=== PATIENT | male | born 1965 | race Two or more races ===

== ENCOUNTER → 2019-08-21 07:40 | Outpatient (CLI) | payer OTHER | END | disposition home or self-care (01) | LOC: LAB 07:40 | PROVIDERS: ATTEND Internal Medicine Cardiovascular Disease | DX: I25.10 Atherosclerotic heart disease of native coronary artery without angina pectoris (principal); I10 Essential (primary) hypertension; E03.8 Other specified hypothyroidism; E78.2 Mixed hyperlipidemia; E11.9 Type 2 diabetes mellitus without complications ==

== ENCOUNTER 2019-08-21 08:34 | Outpatient (CLI) | payer OTHER | END 2019-08-21 09:33 | disposition home or self-care (01) | LOC: NUCLEAR 08:34 | PROVIDERS: ATTEND Internal Medicine Cardiovascular Disease | DX: I80.02 Phlebitis and thrombophlebitis of superficial vessels of left lower extremity (principal) ==

== ENCOUNTER 2021-02-14 07:40 | Outpatient (CLI) | payer OTHER | END 2021-02-14 08:00 | disposition home or self-care (01) | LOC: PPH VACUNA 07:40 | PROVIDERS: ATTEND Emergency Medicine Pediatric Emergency Medicine | DX: Z23 Encounter for immunization (principal) ==

== ENCOUNTER 2022-06-26 08:32 | Outpatient (CLI) | payer OTHER | END 2022-06-26 08:35 | disposition home or self-care (01) | LOC: LAB 08:32 | PROVIDERS: ATTEND Surgery | DX: N40.1 Benign prostatic hyperplasia with lower urinary tract symptoms (principal); Z12.5 Encounter for screening for malignant neoplasm of prostate; N52.9 Male erectile dysfunction, unspecified ==

== ENCOUNTER → 2023-01-01 07:42 | Outpatient (CLI) | payer OTHER | END | disposition home or self-care (01) | LOC: LAB 07:42 | PROVIDERS: ATTEND Surgery | DX: R97.20 Elevated prostate specific antigen [PSA] (principal) ==